=== PATIENT | female | born 2005 | race Caucasian/White ===

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

== ENCOUNTER → 2025-01-18 15:23 | Outpatient (BNVA) | payer SELFPAY | PROVIDERS: PCP Family Medicine | DX: J02.8 Acute pharyngitis due to other specified organisms (principal); B97.89 Other viral agents as the cause of diseases classified elsewhere | CPT/HCPCS: 81025; 87071; 87880 ==

== ENCOUNTER 2025-02-09 22:46 | Emergency (ER) | payer SELFPAY ==
--- OUTSIDE RECORDS SUMMARY | 2023-11-24 10:00 | XMS_ITS | Continuity of Care Document ---
Author Organization [facility] Address [address] [place] [address] Phone Care Team Providers Care Pump Assembler Name Role Phone No Information Unavailable Unavailable Advance Directives Directive Yes / No Effective Date File Name No Information Encounters Encounter Description Practice Location Reason(s) For Visit Diagnoses Date Provider Providers Copied on Encounter [facility], [address], [place], [place], [id number], [place] tel:[phone] [facility] No Information Sep-0 No Information Family History Family Member Type Diagnosis Age At Onset No Information Payers Payer name Insurance type Covered democrat ID Authoriza tion(s) No Information Social History Type Description Quantity Date Captured Comments Sex Female Smoking Status No Information Chief Complaint And Reason For Visit No Information Reason For Referral Reason For Referral No Information History Of Present Illness Encounter Date Complaint History Of Prese nt Illness No Information Functional Status Date Functional Assessmen t No Information Instructions Date Instruction Additional Infor mation No Information Assessments Type Assessment Date No Information Patient Care Teams Name Effective Dates (start - stop) Status Members No Information
[2025-02-09 22:47] VITALS: BP 117/77; PULSE 91; RESP 16; TEMP 36.8; O2SAT 99; BMI 21.7
--- OUTSIDE RECORDS SUMMARY | 2025-02-09 22:54 | XMS_ITS | Patient Health Record ---
Author Organization [facility] Address [address] [place] [address] Care Team Providers Care Senior Quality Methods Specialist Name Role Phone Charan Soliz MD Primary Care Provider Dolores Verma Unavailable [phone] Allergies Allergen (clinical drug ingredient) Drug/Non Drug Allergy documented on EMR Reaction Allergy Type Onset Date Status Penicillin Unknown Drug Allergy Active Reason For Referral No Information Medications Medication SIG (Take, Route, Frequency, Duration) Notes Start Date End Date Status NovoLOG FlexPen 100 UNIT/ML Solution Pen-injector 5 units Subcutaneous TID before meals Active Sertraline HCl Activ e Cetirizine HCl Activ e Ondansetron Active Lantus 100 UNIT/ML Solution 15 units Subcutaneous once per day in evening Active Social History Tobacco Use: Social History Observation Description Date Details (start date - stop date) Never Smoker NA - NA Social History Tobacco Use: Social Info Question Answer Notes xTobacco Use/Smoking Are you a nonsmoker Problems Problem Type SNOMED Code ICD Code Onset Dates Problem Status W/U Status Risk Notes Problem Hypoglycemia due to type 1 diabetes mellitus (disorder) (46042546445529) Type 1 diabetes mellitus with hypoglycemia and without coma (E10.649) Active confirmed Problem Long-term current use of insulin (791263210) Current use of insulin (Z79.4) Active confirmed Problem Hyperglycemia due to diabetes mellitus (930197996) Hyperglycemia due to diabetes mellitus (E11.65) Active confirmed Plan Of Treatment Pending Test Test Name Order Date C-Peptide 14287 01/15/2023 Hemoglobin A1c 02052 01/15/2023 Glucose Fasting--33492 01/15/2023 Insurance Providers Payer Name Payer Address Payer Phone Subscriber Number Group Number Insured Name Patient Relationship to Insured Coverage Start Date Coverage End Date [place] [address] [place] [address] [id number] Sam Hernandez Self - patient is the insured Medical (General) History Medical History History ICD Code type I diabetes
--- OUTSIDE RECORDS SUMMARY | 2025-02-09 22:54 | XMS_ITS | Data Portability ---
Author Organization [facility], Telemedicine Address [address] [address] Care Team Providers Care Coping Machine Assembler Name Role Phone [facility] Primary Car e Provider Assessment No assessment recorded. Plan of Treatment Reminders Order Date Submit Date Provider Last Modified By Organization Details Last Modified Time Details Appointments None recorded. Lab HbA1c (hemoglobin A1c), blood 2022 023 TARA Not available 3 07:39:15 CMP, serum or plasma 2022 023 TARA Not available 3 07:39:14 lipid panel, serum 2022 023 TARA Not available 3 07:39:14 CBC w/ auto diff 2022 023 TARA Not available 3 07:39:16 urinalysis, complete 2022 023 TARA Not available 3 07:39:16 albumin/cre atinine, ratio, urine 2022 023 Not available 3 11:12:16 venipunctur e 2022 023 [email or web address] Not available 3 11:12:16 Referral diabetic nutrition education referral 2022 023 [facility], [address], [place], [address], 3 17:50:10 Procedures None recorded. Surgeries None recorded. Imaging None recorded. Medication Orders cetirizine 10 mg tablet 2022 023 [facility], [address] [place], [address], 3 14:37:21 ondansetron HCl 8 mg tablet [address] [facility] [place], [address], 3 15:07:04 valacyclovi r 1 gram tablet 2022 023 [facility], [address] [place], [address], 3 10:22:20 Novolog FlexPen U-100 Insulin aspart 100 unit/mL (3 mL) subcutaneou s 2022 023 [facility], [address] [place], [address], 3 18:07:43 Lantus Solostar U-100 Insulin 100 unit/mL (3 mL) subcutaneou s pen 2022 023 [facility], [address] [place], [address], 3 10:44:29 Patient TargetsNo targets recorded. Patient Instructions Encounter Date Encounter Id Patient Instructions Last Modified By Organization Details Last Modified Time 01/01/2023 [id number] cold sores in teens: care instructions [email or web address] Not available 01/01/2023 17:01:48 Reason for Referral Diabetic Nutrition Education Referral for Uncontrolled type 1 diabetes mellitus Referring Physician: Charan Soliz, Family Medicine, Encounter Date: 01/01/2023 Results Created Date Observation Date Name Description Value Unit Range Abnormal Flag Note LastModifiedBy Organization Detail LastModifiedTime 11/05/19 23 11/05/2022 COMP METAB OLIC PANEL sodium 134 mEq/L 135-14 6 low Not Available [facility] [address] [facility], [place], [address], 11/05/2022 07:39:14 11/05/1911/05/2022 COMP METAB OLIC PANEL potassium 5.1 mEq/L 3.5-5. 4 Not Available [facility] [address] [place], [address], 11/05/2022 07:39:14 11/05/1911/05/2022 COMP METAB OLIC PANEL chloride 102 mEq/L 95-107 Not Available [facility] [address] [place], [address], 11/05/2022 07:39:14 11/05/19 23 11/05/2022 COMP METAB OLIC PANEL carbon dioxide 16 mEq/L 19-31 low Not Available [facility] [address] [place], [address], 11/05/2022 07:39:14 11/05/19 23 11/05/2022 COMP METAB OLIC PANEL anion gap 16 mEq/L 7-23 Not Available [facility] [address], [place], [address], 11/05/2022 07:39:14 11/05/19 23 11/05/2022 COMP METAB OLIC PANEL glucose fasting 426 mg/dL 70-99 high Not Available [facility] [address] [place], [address], 11/05/2022 07:39:14 11/05/19 23 11/05/2022 COMP METAB OLIC PANEL urea nitrogen (BUN) 14 mg/dL 6-20 Not Available [facility] [address] [place], [address], 11/05/2022 07:39:14 11/05/19 23 11/05/2022 COMP METAB OLIC PANEL creatinine 0.68 mg/dL 0.50-1 .10 Not Available [facility] [address] [place], [address], 11/05/2022 07:39:14 11/05/19 23 11/05/2022 COMP METAB OLIC PANEL 2020 CKD-epi eGFR-cr SEE NOTE mL/mi n/1.7 3m'2 Not Available [facility] [address], [place], [address], 11/05/2022 07:39:14 11/05/19 23 11/05/2022 COMP METAB OLIC PANEL BUN/creatini ne ratio 21 ratio Not Available [facility] [address], [place], [address], 11/05/2022 07:39:14 11/05/19 23 11/05/2022 COMP METAB OLIC PANEL calcium total 9.8 mg/dL 8.5-10 .5 Not Available [facility] [address], [place], [address], 11/05/2022 07:39:14 11/05/19 23 11/05/2022 COMP METAB OLIC PANEL protein total 7.3 g/dL 6.1-8. 3 Not Available [facility] [address], [place], [address], 11/05/2022 07:39:14 11/05/19 23 11/05/2022 COMP METAB OLIC PANEL albumin 4.7 g/dL 3.5-5. 2 Not Available [facility] [address], [place], [address], 11/05/2022 07:39:14 11/05/19 23 11/05/2022 COMP METAB OLIC PANEL globulin 2.6 g/dL 1.7-4. 3 Not Available [facility] [address] [place], [address], 11/05/2022 07:39:14 11/05/19 23 11/05/2022 COMP METAB OLIC PANEL A/G ratio 1.8 ratio 0.9-2. 8 Not Available [facility] [address] [place], [address], 11/05/2022 07:39:14 11/05/19 23 11/05/2022 COMP METAB OLIC PANEL bilirubin total 0.6 mg/dL 0.0-1. 2 Not Available [facility] [address] [place], [address], 11/05/2022 07:39:14 11/05/19 23 11/05/2022 COMP METAB OLIC PANEL alkaline phosphatase 99 U/L 41-120 Not Available [facility] [address] [facility] [place], [address], 11/05/2022 07:39:14 11/05/19 23 11/05/2022 COMP METAB OLIC PANEL AST (SGOT) 12 U/L 9-40 Not Available [facility] [address] [place], [address], 11/05/2022 07:39:14 11/05/19 23 11/05/2022 COMP METAB OLIC PANEL ALT (SGPT) 11 U/L 5-40 Comme nt for COMP METAB OLIC PANEL Note: 2020 CKD-E PI is not valid ated for pedia tric popul ation s. For patie nts less than 19 years old, consi terrance the NKF pedia tric eGFR calcu lator . Not Available [facility] [address] [place], [address], 11/05/2022 07:39:14 11/05/19 23 11/05/2022 LIPID PROFI LE cholesterol 185 mg/dL <200 Not Available [facility] [address] [facility] [place], [address], 11/05/2022 07:39:14 11/05/19 23 11/05/2022 LIPID PROFI LE triglyceride s 134 mg/dL 0-149 Not Available [facility] [address] [facility] [place], [address], 11/05/2022 07:39:14 11/05/19 23 11/05/2022 LIPID PROFI LE HDL cholesterol 59 mg/dL >39 Not Available [facility] [address] [facility] [place], [address], 11/05/2022 07:39:14 11/05/19 23 11/05/2022 LIPID PROFI LE LDL cholesterol 103 mg/dL <100 high Not Available [facility] [address] [facility] [place], [address], 11/05/2022 07:39:14 11/05/19 23 11/05/2022 LIPID PROFI LE non HDL cholesterol 126 mg/dL <130 Not Available [facility] [address] [facility] [place], [address], 11/05/2022 07:39:14 11/05/19 23 11/05/2022 LIPID PROFI LE coronary risk ratio 3.14 <4.44 Comme nt for LIPID PROFI LE Non-H DL Allyson stero l is a eden r indic ator for cardi ovasc ular risk than LDL-C holes terol for patie nts who have incre ased trigl yceri zo or are non-f astin g. Non-H DL Allyson stero l: < 130 mg/dL (Opti mal) < 160 mg/dL (Near Optim al/Ab ove Optim al) LDL Al[place] stero l: < 100 mg/dL (Opti mal) < 130 mg/dL (Near Optim al/Ab ove Optim al) Coron abby Risk Ratio : [place] ge for femal es < 4.44 Not Available [facility] [address] [facility] [place], [address], 11/05/2022 07:39:14 11/05/19 23 11/05/2022 HEMOG LOBIN A1C hemoglobin A1C 6.8 % 4.2-5. 6 high Not Available [facility] [address] [facility] [place], [address], 11/05/2022 07:39:15 11/05/19 23 11/05/2022 HEMOG LOBIN A1C mean glucose est 148 mg/dL Comme nt for HEMOG LOBIN A1C [facility]i can [facility] i[facility] n Guide lines for Hgb A1c: Predi abete s/Inc rease d risk: 5.7 - 6.4 % Diagn osis of diabe cristobal: >= 6.5 % (with confi rmati on or appro priat e sympt oms) Assay may be affec patrizia by hemog lobin opath ies (sick le cell anemi a, SC disea se, other s) or artif icial ly lower ed by decre ased red cell survi jennifer (hemo lytic anemi as, blood loss, etc.) . Consi terrance alter elroy testi ng or labor atory consu ltati on. Not Available [facility] [address] [facility] [place], [address], 11/05/2022 07:39:15 11/05/19 23 11/05/2022 ALBUM IN/CR EAT RATIO albumin urine 1.1 mg/dL Not Available [facility] [address] [facility] [place], [address], 11/05/2022 07:39:15 11/05/19 23 11/05/2022 ALBUM IN/CR EAT RATIO creatinine-r andom urine 60 mg/dL 28-217 Not Available [facility] [address] [facility] [place], [address], 11/05/2022 07:39:15 11/05/19 23 11/05/2022 ALBUM IN/CR EAT RATIO albumin/crea t ratio 18 mg/g_ crea <30 Not Available [facility] [address], [place], [address], 11/05/2022 07:39:15 11/05/19 23 11/05/2022 CBC WITH DIFFE RENTI AL WBC 7.4 K/uL 4.0-11 .0 Not Available [facility] [address], [place], [address], 11/05/2022 07:39:16 11/05/19 23 11/05/2022 CBC WITH DIFFE RENTI AL RBC 4.47 M/uL 4.00-5 .50 Not Available [facility] [address], [place], [address], 11/05/2022 07:39:16 11/05/19 23 11/05/2022 CBC WITH DIFFE RENTI AL hemoglobin 13.4 g/dL 12.0-1 6.0 Not Available [facility] [address] [place], [place], [address], 11/05/2022 07:39:16 11/05/19 23 11/05/2022 CBC WITH DIFFE RENTI AL hematocrit 40.5 % 36.0-4 8.0 Not Available [facility] [address] [place], [address], 11/05/2022 07:39:16 11/05/19 23 11/05/2022 CBC WITH DIFFE RENTI AL MCV 90.6 fL 78.0-1 02.0 Not Available [facility] [address] [place], [address], 11/05/2022 07:39:16 11/05/19 23 11/05/2022 CBC WITH DIFFE RENTI AL MCH 30.0 pg 25.0-3 5.0 Not Available [facility] [address] [place], [place], [address], 11/05/2022 07:39:16 11/05/19 23 11/05/2022 CBC WITH DIFFE RENTI AL MCHC 33.1 g/dL 30.0-3 6.0 Not Available [facility] [address] [place], [address], 11/05/2022 07:39:16 11/05/19 23 11/05/2022 CBC WITH DIFFE RENTI AL RDW 11.3 % 11.5-1 6.0 low Not Available [facility] [address] [place], [place], [address], 11/05/2022 07:39:16 11/05/19 23 11/05/2022 CBC WITH DIFFE RENTI AL platelet count 394 K/uL 150-45 0 Not Available [facility] [address] [place], [address], 11/05/2022 07:39:16 11/05/19 23 11/05/2022 CBC WITH DIFFE RENTI AL abs neutrophils 5.0 K/uL 1.8-7. 0 Not Available [facility] [address] [place], [address], 11/05/2022 07:39:16 11/05/19 23 11/05/2022 CBC WITH DIFFE RENTI AL abs lymphocytes 1.6 K/uL 1.0-4. 0 Not Available [facility] [address] [place], [address], 11/05/2022 07:39:16 11/05/19 23 11/05/2022 CBC WITH DIFFE RENTI AL abs monocytes 0.5 K/uL 0.1-1. 1 Not Available [facility] [address] [place], [address], 11/05/2022 07:39:16 11/05/19 23 11/05/2022 CBC WITH DIFFE RENTI AL abs eosinophils 0.2 K/uL 0.0-0. 5 Not Available [facility] [address], [place], [address], 11/05/2022 07:39:16 11/05/19 23 11/05/2022 CBC WITH DIFFE RENTI AL abs basophils 0.1 K/uL 0.0-0. 3 Not Available [facility] [address], [place], [address], 11/05/2022 07:39:16 11/05/19 23 11/05/2022 CBC WITH DIFFE RENTI AL abs immature grans 0.0 K/uL 0.0-0. 1 Not Available [facility] [address] [place], [place], [address], 11/05/2022 07:39:16 11/05/19 23 11/05/2022 CBC WITH DIFFE RENTI AL neutrophils 67.8 % Not Available [facility] [address] [place], [place], [address], 11/05/2022 07:39:16 11/05/19 23 11/05/2022 CBC WITH DIFFE RENTI AL lymphocytes 21.4 % Not Available [facility] [address] [place], [place], [address], 11/05/2022 07:39:16 11/05/19 23 11/05/2022 CBC WITH DIFFE RENTI AL monocytes 6.2 % Not Available [facility] [address], [place], [address], 11/05/2022 07:39:16 11/05/19 23 11/05/2022 CBC WITH DIFFE RENTI AL eosinophils 2.8 % Not Available [facility] [address] [place], [address], 11/05/2022 07:39:16 11/05/19 23 11/05/2022 CBC WITH DIFFE RENTI AL basophils 1.5 % Not Available [facility] [address], [place], [address], 11/05/2022 07:39:16 11/05/19 23 11/05/2022 CBC WITH DIFFE RENTI AL immature grans 0.3 % Not Available [facility] [address], [place], [address], 11/05/2022 07:39:16 11/05/19 23 11/05/2022 CBC WITH DIFFE RENTI AL nucleated RBCs <1.0 /100_ WBCs <1 Not Available [facility] [address], [place], [address], 11/05/2022 07:39:16 11/05/19 23 11/05/2022 URINA LYSIS W/SAMI RO color YELLOW yellow Not Available [facility] [address] [place], [address], 11/05/2022 07:39:16 11/05/19 23 11/05/2022 URINA LYSIS W/SAMI RO clarity CLEAR clear Not Available [facility] [address] [place], [address], 11/05/2022 07:39:16 11/05/19 23 11/05/2022 URINA LYSIS W/SAMI RO glucose 3+ negati ve abnormal Not Available [facility] [address] [place], [address], 11/05/2022 07:39:16 11/05/19 23 11/05/2022 URINA LYSIS W/SAMI RO bilirubin NEGATI VE negati ve Not Available [facility] [address], [place], [address], 11/05/2022 07:39:16 11/05/19 23 11/05/2022 URINA LYSIS W/SAMI RO ketones 4+ negati ve abnormal Not Available [facility] [address] [place], [address], 11/05/2022 07:39:16 11/05/19 23 11/05/2022 URINA LYSIS W/SAMI RO specific gravity 1.032 1.005- 1.030 high Not Available [facility] [address] [place], [address], 11/05/2022 07:39:16 11/05/19 23 11/05/2022 URINA LYSIS W/SAMI RO blood NEGATI VE negati ve Not Available [facility] [address] [place], [address], 11/05/2022 07:39:16 11/05/19 23 11/05/2022 URINA LYSIS W/SAMI RO pH 5.5 4.6-8. 5 Not Available [facility] [address] [place], [address], 11/05/2022 07:39:16 11/05/19 23 11/05/2022 URINA LYSIS W/SAMI RO protein NEGATI VE negati ve Not Available [facility] [address] [place], [address], 11/05/2022 07:39:16 11/05/19 23 11/05/2022 URINA LYSIS W/SAMI RO nitrite NEGATI VE negati ve Not Available [facility] [address] [place], [address], 11/05/2022 07:39:16 11/05/19 23 11/05/2022 URINA LYSIS W/SAMI RO leukocyte esterase NEGATI VE negati ve Not Available [facility] [address], [place], [address], 11/05/2022 07:39:16 11/05/19 23 11/05/2022 URINA LYSIS W/SAMI RO white blood cells 12 /hpf <2 high Not Available [facility] [address] [place], [address], 11/05/2022 07:39:16 11/05/19 23 11/05/2022 URINA LYSIS W/SAMI RO red blood cells <2 /hpf 0-4 Not Available [facility] [address] [place], [address], 11/05/2022 07:39:16 11/05/19 23 11/05/2022 URINA LYSIS W/SAMI RO bacteria 3+ negati ve abnormal Not Available [facility] [address] [place], [address], 11/05/2022 07:39:16 11/05/19 23 11/05/2022 URINA LYSIS W/SAMI RO epith-squamo us 12 Not Available [facility] [address] [place], [address], 11/05/2022 07:39:16 11/05/19 23 11/05/2022 URINA LYSIS W/SAMI RO casts-hyalin e 0 Not Available [facility] [address] [place], [address], 11/05/2022 07:39:16 Result Notes None recorded. Problems Name Problem SNOMED Code Status Onset Date Resolution Date Notes Provider Name and Address Organization Details Recorded Time Uncontro lled type 1 diabetes mellitus 947826589 Active Charan Soliz MD [address] [place], [address], [place] - Charan Davisibner 6 22:31:32 Upper respirat ory infectio n 47902669 Completed 03/19/2016 Removal Reason: Resolved BEN Tobar 6 10:30:24 Asthma 658944428 Active Charan Soliz MD [address] [place], [address], [place] - Charan Davisibner 6 11:07:44 Otitis media 20517420 Completed 03/19/2016 Removal Reason: Resolved Melba Stapleton candaceBEN 6 10:30:14 Allergic rhinitis 90822078 Completed 03/19/2017 BEN Tobar 7 15:02:08 Problem Notes None recorded. Medical Equipment None Reported. Allergies Allergen ID Allergen Name Allergen Category Reaction Reaction Severity Criticality Documentation Date Start Date Code Code System Note Provider Name and Address Organization Details Recorded Time 11245 Bactrim medicatio n rash moderate Not available 04/18/2017 07595 9 RxNorm [place], [address], [place] - Charan Soliz 8 10:39:36 79072 valacyclo vir medicatio n Not available Not available low 01/02/2023 15948 RxNorm Stevo mariaBEN 3 10:22:01 5681 Product containin g penicilli n (product) medicatio n Not available Not available Not available 04/27/2014 43975 8001 SNOMED Carol Castaneda BEN maria 5 09:06:15 Medications Name Sig Start Date Stop Date Status Note LastModified by Organization Details LastModified Time monteluka st 5 mg chewable tablet Chew 1 tablet every day by oral route. 09/04 completed Not Available Not Available Not Available fluconazo le 100 mg tablet TAKE ONE TABLET BY MOUTH EVERY DAY FOR THREE DAYS 12/11 completed Not Available Not Available Not Available neomycin- polymyxin -hydrocor t 3.5 mg/mL-10, 000 unit/mL-1 % ear solution 03/06 completed Not Available Not Available Not Available doxycycli ne hyclate 100 mg capsule TAKE 1 CAPSULE BY MOUTH TWICE DAILY FOR 7 DAYS 10/03 completed Not Available Not Available Not Available albuterol sulfate 2.5 mg/3 mL (0.083 %) solution for nebulizat ion USE 1 VIAL IN NEBULIZE R 4 TIMES A DAY NEEDED DIRECTED 01/04 completed Not Available Not Available Not Available azithromy cassy 250 mg tablet Take 1 dose pk every day by oral route. 02/06 completed Not Available Not Available Not Available Glucagon Emergency Kit 1 mg solution for injection INJECT 1 MG SUBCUTAN EOUSLY EVERY 20 MINUTES NEEDED FOR HYPOGLYC EMIA; UNTIL TARGET BLOOD SUGAR ATTAINED active Not Available Not Available No t Available fluconazo le 150 mg tablet TAKE ONE TABLET BY MOUTH one time ONLY 09/04 completed Not Available Not Available Not Available valacyclo vir 1 gram tablet Take 2 tablets every 12 hours by oral route for 1 day. 01/02 completed Not Available Not Available Not Available clarithro mycin 500 mg tablet Take 1 tablet twice a day by oral route for 7 days. 11/04 completed Not Available Not Available Not Available ondansetr on HCl 8 mg tablet Take 1 tablet 3 times a day by oral route. active Not Available Not Available No t Available sertralin e 100 mg tablet TAKE ONE TABLET BY MOUTH EVERY DAY 10/03 completed Not Available Not Available Not Available Lantus U-100 Insulin 100 unit/mL subcutane ous solution INJECT 21 UNITS SUBCUTAN EOUSLY IN THE EVENING 10/03 completed Not Available Not Available Not Available Zyrtec 10 mg tablet Take 1 tablet every day by oral route for 30 days. 2022 active Not Available Not Available Not Avai lable sulfameth oxazole 800 mg-trimet hoprim 160 mg tablet Take 1 tablet twice a day by oral route for 7 days. 04/18 completed Not Available Not Available Not Available triamcino lone acetonide 0.1 % topical cream APPLY topicall y TO THE affected AREAS TWICE DAILY 10/03 completed Not Available Not Available Not Available ondansetr on 8 mg disintegr ating tablet Place 1 tablet 3 times a day by translin gual route as needed. 03/15 completed Not Available Not Available Not Available ofloxacin 0.3 % ear drops Instill 2 drops every day by otic route for 7 days. 01/16 completed Not Available Not Available Not Available gentamici n 0.3 % eye drops 01/25 completed Not Available Not Available Not Available benzonata te 100 mg capsule Take 1 capsule 3 times a day by oral route as needed. 04/16 completed Not Available Not Available Not Available cephalexi n 500 mg capsule Take 1 capsule 3 times a day by oral route as directed for 7 days. 08/26 completed Not Available Not Available Not Available Promethaz ine VC 6.25 mg-5 mg/5 mL oral syrup active Not Available Not Available Not Available norgestim ate-ethin yl estradiol 0.18mg/0. 215mg/0.2 5mg-0.035 mg(28)tab let TAKE ONE TABLET BY MOUTH EVERY DAY 05/23 completed Not Available Not Available Not Available azithromy cassy 200 mg/5 mL oral suspensio n Take 5 mL every day by oral route. active Not Available Not Available No t Available ondansetr on 4 mg disintegr ating tablet DISSOLVE ONE TABLET in MOUTH THREE TIMES DAILY NEEDED FOR NAUSEA AND VOMITING 10/03 completed Not Available Not Available Not Available cefdinir 300 mg capsule TAKE ONE CAPSULE BY MOUTH TWICE DAILY 08/26 completed Not Available Not Available Not Available clotrimaz ole 1 % topical cream Apply 1 applicat ion twice a day by topical route. 05/03 completed Not Available Not Available Not Available sertralin e 50 mg tablet TAKE 1 TABLET BY MOUTH TWICE DAILY active Not Available Not Available No t Available medroxypr ogesteron e 150 mg/mL intramusc ular suspensio n one injectio n every three months 2022 active Not Available Not Available Not Avai lable doxycycli ne hyclate 100 mg tablet Take 1 tablet twice a day by oral route for 7 days. 11/21 completed Not Available Not Available Not Available Ventolin HFA 90 mcg/actua tion aerosol inhaler INHALE 2 PUFFS BY MOUTH EVERY 4 HOURS NEEDED active Not Available Not Available No t Available Mucinex 600 mg tablet, extended release Take 1 tablet twice a day by oral route as needed. active Not Available Not Available No t Available medroxypr ogesteron e 150 mg/mL intramusc ular syringe INJECT INTRAMUS CULARLY EVERY THREE MONTHS active Not Available Not Available No t Available Sprintec (28) 0.25 mg-0.035 mg tablet TAKE 1 TABLET BY MOUTH ONCE DAILY 10/03 completed Not Available Not Available Not Available Novolog FlexPen U-100 Insulin aspart 100 unit/mL (3 mL) subcutane ous USE DIRECTED PER SLIDING SCALE 2022 active Not Available Not Available Not Avai lable cetirizin e 5 mg chewable tablet Chew 1 tablet every day by oral route. 2015 active had to get the liquid because [facility] will not pay for the chewable tabs Not Available Not Available Not Available Flovent HFA 110 mcg/actua tion aerosol inhaler 07/24 completed Not Available Not Available Not Available Unifine Pentips 31 gauge x 5/16 needle USE TO TAKE INSULIN UP TO 5 TIMES A DAY NEEDED 10/03 completed Not Available Not Available Not Available Mucinex D Maximum Strength 120 mg-1,200 mg tablet,ex tended release Take 1 tablet twice a day by oral route as needed. 03/06 completed Not Available Not Available Not Available Lantus Solostar U-100 Insulin 100 unit/mL (3 mL) subcutane ous pen inject 15 units SUBCUTAN EOUSLY EVERY night 91 DAY supply active Not Available Not Available No t Available cetirizin e 1 mg/mL oral solution 07/24 completed Not Available Not Available Not Available TRUEplus Lancets 30 gauge USE TO test blood sugar FOUR TIMES DAILY 10/03 completed Not Available Not Available Not Available True Metrix Glucose Test Strip USE TO test blood sugar FOUR TIMES DAILY 10/03 completed Not Available Not Available Not Available True Metrix Glucose Meter USE TO test blood sugar FOUR TIMES DAILY 10/03 completed Not Available Not Available Not Available BD Elena 2nd Gen Pen Needle 32 gauge x 5/32 USE DIRECTED active Not Available Not Available No t Available Vitals Date Recorded Body weight Heart rate Oxygen saturation Oxygen saturation in Arterial blood by Pulse oximetry Body temperature Systolic And Diastolic Provider Name and Address Organization Details Last Updated DateTime 3 94960.9 g 108 /min 97 % 97 % 98 [degF] 116/68 mm[Hg] [facility] Mart[facility]nez 3 10:11:36 Date Recorded Body weight Heart rate Oxygen saturation Oxygen saturation in Arterial blood by Pulse oximetry Body temperature Systolic And Diastolic Provider Name and Address Organization Details Last Updated DateTime 3 84003.9 g 102 /min 98 % 98 % 98 [degF] 109/71 mm[Hg] [facility] 3 16:49:34 Date Recorded Body weight Body temperature Heart rate Oxygen saturation Oxygen saturation in Arterial blood by Pulse oximetry Systolic And Diastolic Provider Name and Address Organization Details Last Updated DateTime 3 84909.4 6 g 99.3 [degF] 56 /min 97 % 97 % 119/68 mm[Hg] [facility] [place] 3 16:17:18 Date Recorded Body weight Body temperature Heart rate Oxygen saturation Oxygen saturation in Arterial blood by Pulse oximetry Body mass index (BMI) [Percentile] Per age and sex Body mass index (BMI) Body height Systolic And Diastolic Provider Name and Address Organization Details Last Updated DateTime 3 74358.8 6 g 98.4 [degF] 90 /min 99 % 99 % 61 % 22.5 kg/m2 157.48 cm 104/65 mm[Hg] Tracey arshad [facility] [place] 3 14:26:26 Date Recorded Body height Body mass index (BMI) Body mass index (BMI) [Percentile] Per age and sex Body weight Body temperature Oxygen saturation Oxygen saturation in Arterial blood by Pulse oximetry Heart rate Systolic And Diastolic Provider Name and Address Organization Details Last Updated DateTime 3 157.48 cm 21.6 kg/m2 51 % 71111.9 8 g 98.5 [degF] 99 % 99 % 91 /min 116/67 mm[Hg] Stevo Davisibner 3 16:03:00 Social History Question Answer Notes LastModified by Organizat ion Details LastModified Time Tobacco Smoking Status Never Smoker Not Available [employer] 01/25/2020 03:38:54 What Is Your Level Of Caffeine Consumption? Occasional [id number] Information not available 01/25/2020 How Much Tobacco Do You Chew? None [id number] Information not available 01/25/2020 What Type Of Diet Are You Following? REGULAR [id number] Information not available 01/25/2020 What Is The Fluoride Status Of Your Home? Unknown [id number] Information not available 01/25/2020 Are There Any Guns Present In Your Home? Yes [id number] Information not available 01/25/2020 What Is Your Home Situation? Father [id number] Information not available 01/25/2020 Mosquito Repellent Used Routinely Yes Information not available 04/27/2014 What Was The Date Of Your Most Recent Tobacco Screening? 01/07/2023 [email or web address] Information not available 01/07/2023 What Is Your Parents' Marital Status? [id number] Information not available 01/25/2020 What Is The Name Of Your School? [employer] [id number] Information not available 01/25/2020 Do You Use Your Seat Belt Or Car Seat Routinely? Yes [id number] Information not available 01/25/2020 Are You Sexually Active? No [id number] Information not available 01/25/2020 Do You Have Any Siblings? 1 Brother [id number] Information not available 01/25/2020 Do You Have Smoke And Carbon Monoxide Detectors In Your Home? Yes [id number] Information not available 01/25/2020 Are You Passively Exposed To Smoke? Yes Information not available 04/27/2014 How Much Tobacco Do You Smoke? No [id number] Information not available 01/25/2020 What Types Of Sporting Activities Do You Participate In? None [id number] Information not available 01/25/2020 Do You Use Sunscreen Routinely? Yes [id number] Information not available 01/25/2020 Year In School 8 Informat[employer] n not available 01/01/2019 Sex: Unknown Functional Status Question Answer Note LastModified by Organization D etails LastModified Time What is your level of alcohol consumption? None [id number] Information not available 01/25/2020 Mental Status None recorded. Family History Relationship Description Onset Age of this Age Resolved Age Notes LastModified by Organization Details LastModified Time Father Asthma [email or web address] Not available 0 06/27/2014 17:36:31 Medical History Condition Response Diabetes Y Asthma Y Gynecological HistoryNo gynecological history recorded. Obstetrics History GPAL:G 0 P 0 0 0 0 Immunizations Vaccine Type Date Status Note Provider Nam e and Address Organization Details Recorded Time influenza, unspecified formulation 7 completed Not Available [facility] 08/22/2022 21:23:06 influenza, unspecified formulation 8 completed Not Available [facility] 08/22/2022 21:23:06 Influenza, split virus, quadrivalent, preservative 9 completed Not Available [facility] 08/22/2022 21:23:06 influenza, unspecified formulation 5 completed Not Available [facility] 08/22/2022 21:23:06 DTaP, unspecified formulation 4 completed Not Available [facility] 08/22/2022 21:23:07 DTaP, unspecified formulation 6 completed Not Available [facility] 08/22/2022 21:23:07 DTaP, unspecified formulation 8 completed Not Available [facility] 08/22/2022 21:23:07 Tdap 6 completed Not Available [facility] 08/22/2022 21:23:06 DTaP,IPV,Hib,HepB 5 completed Not Available [facility] 08/22/2022 21:23:07 DTaP,IPV,Hib,HepB 5 completed Not Available [facility] 08/22/2022 21:23:07 polio, unspecified formulation 4 completed Not Available [facility] 08/22/2022 21:23:07 polio, unspecified formulation 8 completed Not Available [facility] 08/22/2022 21:23:07 Hib, unspecified formulation 4 completed Not Available [facility] 08/22/2022 21:23:06 Hib, unspecified formulation 5 completed Not Available [facility] 08/22/2022 21:23:06 pneumococcal conjugate PCV 7 4 completed Not Available [facility] 08/22/2022 21:23:06 pneumococcal conjugate PCV 7 5 completed Not Available [facility] 08/22/2022 21:23:06 pneumococcal conjugate PCV 7 5 completed Not Available [facility] 08/22/2022 21:23:06 pneumococcal conjugate PCV 7 5 completed Not Available [facility] 08/22/2022 21:23:06 Hep B, adolescent or pediatric 4 completed Not Available [facility] 08/22/2022 21:23:07 Hep B, adolescent or pediatric 4 completed Not Available [facility] 08/22/2022 21:23:07 MMR 5 completed Not Available [facility] 08/22/2022 21:23:06 MMR 8 completed Not Available [facility] 08/22/2022 21:23:06 varicella 5 completed Not Available [facility] 08/22/2022 21:23:06 varicella 8 completed Not Available [facility] 08/22/2022 21:23:06 meningococcal MCV4, unspecified formulation 6 completed Not Available [facility] 08/22/2022 21:23:07 Past Encounters Encounter ID Performer Location Encounter Start Date Encounter Closed Date Diagnosis/Indication Diagnosis SNOMED-CT Code Diagnosis ICD10 Code Diagnosis IMO Codes Diagnosis Note [id number] Charan Soliz MD Main Office [address] [place] [address] 04/27/2014 08:44:11 04/27/2014 09:48:23 Uncontrolled type 1 diabetes mellitus 840161233 cbc,cmp,hg ba1c, ua Upper resp iratory infection 74285664 [id number] Charan Soliz MD Main Office [address] [place] [address] 06/27/2014 17:03:54 06/27/2014 18:11:47 Uncontrolled type 1 diabetes mellitus 570575791 increase lantus and cont to follow. Asthma 003009189 [id number] Charan Soliz MD Main Office [address] [place] [address] [place] [address] 1 08/08/2014 16:42:05 08/08/2014 18:26:27 Uncontrolled type 1 diabetes mellitus 712583988 numbers looking better. taking 8units lantus Asthma 646619315 [id number] Charan Soliz MD Main Office [address] [place] [address] [place] [address] 1 10/14/2014 09:14:29 10/14/2014 10:13:24 Well child 873612510 Uncontroll ed type 1 diabetes mellitus 196606672 cbc,cmp,hg ba1c,flp [id number] Charan Soliz MD Main Office [address] [place] [address] [place] [address] 1 01/16/2015 16:42:17 01/16/2015 17:34:44 Uncontrolled type 1 diabetes mellitus 648338975 E10.65 papers filled out for school and will cont to follow. Pt doing some better and starting to take control of her disease. still getting help with shots but checking bg on her own now. check labs next visit. cbc,cmp,hg ba1c [id number] Charan Soliz MD Main Office [address] [place] [address] [place] [address] 04/18/2015 08:50:02 04/18/2015 09:26:47 Uncontrolled type 1 diabetes mellitus 196700335 E10.65 cbc,cmp,hg ba1c,ua,fl p check fasting labs. glucose readings reviewed and doing well. Asthma 669051551 J45.90 9 cont meds. [id number] Charan Soliz MD Main Office [address] [place] [address] [place] [address] 1 07/17/2015 17:08:49 07/17/2015 17:46:42 Uncontrolled type 1 diabetes mellitus 231239409 E10.65 increase to lantus 10 units. will cont to follow Otitis media 70732460 H6 6.93 Allergic rhinitis 370986 04 J30.9 [id number] Charan Soliz MD Main Office [address] [place] [address] [place] [address] 08/14/2015 16:55:15 08/14/2015 18:03:46 Uncontrolled type 1 diabetes mellitus 459725668 E10.65 cont meds. adjustment working well. check labs [id number] Charan Soliz MD Main Office [facility] [place] [address] 10/24/2015 17:00:36 10/24/2015 18:03:52 Uncontrolled type 1 diabetes mellitus 735389798 E10.65 Otitis media 20394492 H6 6.93 [id number] Charan Soliz MD Main Office [facility] [place] [address] 1 01/26/2016 10:06:43 01/26/2016 10:48:36 Uncontrolled type 1 diabetes mellitus 642438280 E10.65 Uncontroll ed. Educated patient and father on better eating habits to control DM. She lives with her father so resources are limited. Continue testing blood sugar 4 times a day and using the lantus and novolog as directed. Will continue to monitor. Follow-up in 3 months. Well child 966013410 Z00 .129 Stable. Patient is exceling in school and meeting all developmen shahida milestones . Follow-up in 1 year. Tinea pedis 8195940 B35. 3 Exacerbate d. Start lotrimin AF as directed. Follow-up in 3 months. Asthma 448220348 J45.90 9 Controlled . Continue using albuterol and ventolin as directed. Follow-up in 3 months. Allergic rhinitis 918256 04 J30.9 Stable. Continue taking cetirizine are directed and follow-up in 3 months. [id number] Charan Soliz MD Main Office [facility] [place] [address] 1 05/03/2016 10:08:20 05/03/2016 11:04:47 Uncontrolled type 1 diabetes mellitus 131270729 E10.65 [id number] Charan Soliz MD Main Office [facility] [place] [address] 1 08/09/2016 11:02:43 08/09/2016 11:46:08 Uncontrolled type 1 diabetes mellitus 482124256 E10.65 [id number] Charan Soliz MD Main Office [address] [place] [address] [place] [address] 1 11/08/2016 08:50:48 11/08/2016 09:41:40 Uncontrolled type 1 diabetes mellitus 973890673 E10.65 Cellulitis 267841829 L03 .90 Asthma 763769556 J45.90 9 [id number] Charan Soliz MD Main Office [address] [place] [address] [place] [address] 1 02/07/2017 10:33:51 02/07/2017 11:36:17 Uncontrolled type 1 diabetes mellitus 071125536 E10.65 Unstable. Referred to DM education classes for dietary advice and to explore the possibilit ies of getting the CGM placed to give a better picture of BG results throughout the day. Continue using Lantus and Novolog as directed. Check BG before any meals, at bedtime and first thing in the morning until CGM is placed. Follow-up in 3 months with fasting lab. Asthma 159495072 J45.90 9 Controlled . Continue to use albuterol and pro-air as needed. Follow-up in 6 months. Well child 717820204 Z00 .129 Stable. Patient needs dental exam. Will have staff set-up referral. Follow-up in 1 year. [id number] Charan Soliz MD Main Office [address] [place] [address] 1 04/11/2017 11:26:10 04/11/2017 13:57:55 Folliculitis 12159064 L73.9 WIll give abx and instructed to stop using TAB oint. Pt denies any abuse or touching. Pt states she is only one putting medicine on her vagina. Type 1 selwyn betes mellitus 81249486 E10.69 novolog 5 units given after accucheck on 500. no ketones. after observatio n for 30 min pt feeling much better and accucheck near 400. Pt to recheck in one hour once home. [id number] Charan Soliz MD Main Office [address] [place] [address] 1 04/18/2017 09:59:09 04/18/2017 10:48:07 Uncontrolled type 1 diabetes mellitus 677229811 E10.65 Eczema 81065634 L30.9 [id number] Charan Soliz MD Main Office [address] [place] [address] 1 05/16/2017 08:46:52 05/16/2017 09:28:14 Uncontrolled type 1 diabetes mellitus 913161820 E10.65 Bronchitis 29974282 J40 [id number] Charan Soliz MD Main Office [address] [place] [address] 1 08/15/2017 09:07:33 08/15/2017 09:59:42 Uncontrolled type 1 diabetes mellitus 334351508 E10.65 Uncontroll ed. Patient's A1C is 9.8. Unfortunat hyacinth, her home status is poor. Father is trying to get moved to town to help improve situation. Encouraged patient and father to count her carbs and stay within recommende d limits. Continue using lantus solostar and novolog as prescribed . Continue to check blood sugar four times a day. Will continue to manage and educate on a regular basis. Follow-up in 3 months. Asthma 468347137 J45.90 9 Controlled . Patient still has proair and albuterol to use as needed. Taking montelukas t on a daily basis. Will continue to monitor. Follow-up in 3 months. [id number] Charan Soliz MD Main Office [address] [place] [address] 1 10/30/2017 08:54:16 10/30/2017 09:35:32 Type 1 diabetes mellitus 37095991 E10.69 Asthma 683221501 J45.90 9 Cellulitis 840104064 L03 .90 [id number] Charan Soliz MD Main Office [address] [place] [address] 1 11/03/2017 15:51:24 11/03/2017 16:38:15 Cellulitis 151620123 L03.90 Type 1 selwyn betes mellitus 32822688 E10.69 [id number] Charan Soliz MD Main Office [address] [place] [address] 1 11/21/2017 08:57:07 11/21/2017 09:51:25 Uncontrolled type 1 diabetes mellitus 908599424 E10.65 Contact de rmatitis caused by urushiol from [facility] fernandez 092694425 L25.5 Asthma 721232269 J45.90 9 [id number] Charan Soliz MD Main Office [address] [place] [address] 1 02/02/2018 10:31:11 02/02/2018 11:04:01 Bronchitis 90060998 J40 Type 1 selwyn betes mellitus 35971984 E10.69 [id number] Charan Soliz MD Main Office [address] [place] [address] 1 03/06/2018 09:48:22 03/06/2018 10:40:06 Uncontrolled type 1 diabetes mellitus 641754208 E10.65 Ankle pain 001007578 M25 .579 Asthma 416667735 J45.90 9 [id number] Charan Soliz MD Main Office [facility] [place] [id number] 1 06/05/2018 09:11:04 06/05/2018 15:25:16 Uncontrolled type 1 diabetes mellitus 031326682 E10.65 [id number] Charan Soliz MD Main Office [facility] [place] [address] 1 09/25/2018 09:23:51 09/25/2018 09:46:55 Uncontrolled type 1 diabetes mellitus 847153880 E10.65 Asthma 647093305 J45.90 9 [id number] Charan Soliz MD Main Office [facility] [place] [address] 1 10/30/2018 10:18:26 10/30/2018 16:44:52 Uncontrolled type 1 diabetes mellitus 672402521 E10.65 Pharyngitis 381723754 J0 2.9 Strep - + Well child 698856127 Z00 .129 [id number] Charan Soliz MD Main Office [facility] [place] [address] 1 01/01/2019 09:14:16 01/01/2019 09:45:53 Uncontrolled type 1 diabetes mellitus 904236621 E10.65 pt's condition is unstable, pt and family advised to check her blood glucose in the morning fasting and before each meal and before qhs. Pt instructed to count carbs and do sliding scale based on carb count. Lantus given at bedtime. Asthma 738771702 J45.90 9 Pt's condition is stable, continue taking montelukas t daily, ProAir as needed for rescue inhaler. Return to clinic in Pharyngitis 413529773 J0 2.9 pt's condition has resolved after taking clarithrom ycin. Please follow up to clinic if symptoms reoccur. [id number] Charan Soliz MD Main Office [facility] [place] [address] 1 03/05/2019 11:22:11 03/08/2019 09:59:30 Uncontrolled type 1 diabetes mellitus 556723035 E10.65 Viral gastroenteritis 11 2564060 A08.4 [id number] Charan Soliz MD Main Office [address] [place] [address] [place] [address] 1 04/01/2019 15:16:46 04/01/2019 16:05:28 Sprain of foot 42967371 S93.601A Right foot - no fractures seen Type 1 selwyn betes mellitus 64996492 E10.69 [id number] Charan Soliz MD Main Office [facility] [place] [address] 1 04/16/2019 10:56:08 04/16/2019 11:31:34 Uncontrolled type 1 diabetes mellitus 339454059 E10.65 [id number] Charan Soliz MD Main Office [facility] [place] [address] 1 05/24/2019 14:08:40 05/24/2019 15:42:09 Pain in right foot 5066268723 97273 M79.671 Right foot - unremarkab le Problem behavior 0905635 01 F91.9 [id number] LEEROY Bryant Main Office [facility] [place] [address] 1 06/04/2019 14:41:15 06/04/2019 15:25:50 Uncontrolled type 1 diabetes mellitus 657478793 E10.65 pt's condition is worsening. pt here for sport's physical for track. pt states that blood sugar is up and down, advised her to follow sliding scale and eat snacks before and after track practice/m eets to avoid hypoglycem ic episodes. F/u in three months. Asthma 755065684 J45.90 9 pt's condition is stable, continue asthma tx protocol, f/u in three months. [id number] Charan Soliz MD Main Office [facility] [place] [id number] 1 10/14/2019 09:37:11 10/14/2019 10:56:16 Asthma 711773221 J45.909 Uncontroll ed type 1 diabetes mellitus 217533278 E10.65 Long-term current use of hormonal contraceptive 4684526363 89089 Z79.3 Otitis externa 6282903 H 60.92 [id number] Charan Soliz MD Main Office [facility] [place] [id number] 1 01/17/2020 09:14:34 01/18/2020 15:51:51 Asthma 360414057 J45.909 Uncontroll ed type 1 diabetes mellitus 257674991 E10.65 Long-term current use of hormonal contraceptive 3225870979 71870 Z79.3 [id number] Charan Soliz MD Main Office [facility] [place] 05019-107 1 02/22/2020 11:16:17 02/22/2020 17:34:48 Uncontrolled type 1 diabetes mellitus 344768470 E10.65 condition is improving with better glucose monitoring , continue treatment regimen and f/u in three months Asthma 637415380 J45.90 9 pt's condition is stable, continue current treatment regimen, f/u in three months. [id number] Charan Soliz MD Main Office [facility] [place] [id number] 1 05/23/2020 09:42:43 05/23/2020 10:35:41 Asthma 867984438 J45.909 Uncontroll ed type 1 diabetes mellitus 421759923 E10.65 [id number] Charan Soliz MD Main Office [facility] [place] 11[address]701 1 08/03/2020 15:27:19 08/04/2020 09:44:29 Uncontrolled type 1 diabetes mellitus 583179083 E10.65 Folliculitis 96015561 L7 3.9 Family terrence nning surveillance 224737808 Z30.09 [id number] Charan Soliz MD Main Office [facility] [place] [id number] 1 09/04/2020 10:34:08 09/05/2020 11:36:15 Asthma 160580545 J45.909 Uncontroll ed type 1 diabetes mellitus 956879933 E10.65 Mood disorder 19974416 F 39 Atopic dermatitis 268299 01 L20.9 [id number] LEEROY Bryant Main Office [facility] [place] [address] 09/27/2020 16:10:00 09/28/2020 16:41:29 Well child visit 464057536 Z00.129 pt is doing well, meeting milestones . she is attending a camp for six months. advised her to monitor her blood sugars with increased physical exercise. Asthma 252924907 J45.90 9 pt's condition is stable, continue asthma tx protocol, f/u in three months. [id number] Charan Soliz MD Main Office [facility] [place] [address] 1 10/02/2020 16:06:10 10/02/2020 16:39:27 Otitis media 71306876 H66.93 Folliculitis 36679777 L7 3.9 Anxiety 11534168 F41.9 [id number] Charan Soliz MD Main Office [address] [place] [address]76[address] 1 10/10/2020 11:26:13 10/10/2020 12:09:30 Folliculitis 87045288 L73.9 Candidiasis of vagina 72 886816 B37.3 Contusion of lower back 051471852 S30.0XXA Atopic dermatitis 648398 01 L20.9 Type 1 selwyn betes mellitus 29564729 E10.69 [id number] Charan Soliz MD Main Office [address] [place] [address] 1 12/11/2020 10:14:43 12/11/2020 10:53:59 Asthma 602073310 J45.909 Uncontroll ed type 1 diabetes mellitus 976962153 E10.65 Ingrowing nail of toe of left foot 0399548682 7273016 L60.0 Depressive disorder 3548 9007 F32.9 [id number] Charan Soliz MD Main Office [address] [place] [address] 736[address] 1 08/26/2022 09:59:36 08/26/2022 10:59:53 Cervical lymphadenopathy 511713328 R59.0 abx and will cont to follow Type 1 selwyn betes mellitus 65180291 E10.69 pt to cont checking BG 4-5 times a day. Pt states she is going to travel this week. Pt to adjust insulin based on meals [id number] Charan Soliz MD Main Office [address] [place] [address] 1 10/03/2022 14:56:56 10/03/2022 16:23:09 Asthma 168565544 J45.909 cont to follow Uncontroll ed type 1 diabetes mellitus 795000629 E10.65 reduce lantus by 5 units. start counting carbs and go 1 unit per 20g carbs [id number] Charan Soliz MD Main Office [address] [place] [address]568 1 11/04/2022 09:55:23 11/04/2022 11:08:25 Uncontrolled type 1 diabetes mellitus 597297315 E10.65 refill lantus and check labs. pt is actually fasting today. Staff and I have concerns about pt's home situation and her surroundin gs. Will cont to monitor Anxiety 79084529 F41.9 cont meds and monitor symptoms [id number] Charan Soliz MD Main Office [address] [place] [address]887 1 11/18/2022 16:17:19 11/19/2022 14:16:43 Sprain of left wrist 5140497033 4385769 S63.502A pt seems to be malingerin g based on pain not c/w exam. Uncontroll ed type 1 diabetes mellitus 590650259 E10.65 refill novolog and check labs. pt is actually fasting today. Staff and I have concerns about pt's home situation and her surroundin gs. Will cont to monitor [id number] Charan Soliz MD Main Office [address] [place] [address]67-738 1 01/01/2023 16:01:16 01/01/2023 17:18:15 Uncontrolled type 1 diabetes mellitus 889593621 E10.65 refill novolog and check labs. pt is actually fasting today. Staff and I have concerns about pt's home situation and her surroundin gs. Will cont to monitorPt to get dm under control before Herpes labialis 4487276 B00.1 [id number] LEEROY Bryant Main Office [address] [place] [address]851-056 1 01/07/2023 14:05:58 01/07/2023 14:36:51 Nausea 809540214 R11.0 use as directed for nausea, monitor blood pressure and continue to follow. Allergic rhinitis 138792 04 J30.9 use as directed for allergies [id number] Charan Soliz MD Main Office [address] [place] [address] 78989-907 1 02/06/2023 15:54:34 02/06/2023 16:53:04 Uncontrolled type 1 diabetes mellitus 760916113 E10.65 Pt with eratic schedule and eating routine. Pt will try to be more c/w eating and calories. will set up with supplies. reviewed monitor Health Concerns Section Related Observation LastModified by Organization Detai ls LastModified Time None Recorded Concern Status LastModified by Organization Details LastModified Time None Recorded Advance Directives Directive None Recorded Payers Insurance Date Sequence Insurance Name Policy Number Policy Green Covered Member ID Green Member ID Guarantor Name 03/03/2023 1 [place] [facility] Sam Hernandez [id number] Sam Hernandez Notes Date Note Type Note Provider Name and Address Organization Details Recorded Time 3 text/htm l Asthma F/UReported by PatientHPIFor severity, patient reportsable to sleep during episodeanddoes not interfere with daily activities. For context, patient reportsimproving. For associated symptoms, patient reportsno fever,no fatigue,no irritability,no cough,normal appetite,no changes in productivity, andno shortness of breath. Diabetes F/UReported by PatientHPIFor review finger sticks, patient reportsfastin's. For labs, patient reportslast a1c result: 7.7. For context, patient reportsnormal range of home blood sugars (in the low 100s),seeing eye doctor regularly, andchecking feet regularly(ranging 150s. occasional 300. pt and father educated on how to adjust insulin). For associated symptoms, patient reportsno weight loss,no dizziness,no sweats,no headaches,no confusion,no increased thirst,no increased appetite,no increased urination,no blurred vision,no numbness of feet, andno calluses on feet.ROS as noted in the HPI Pt here for a 1 month f/u with fasting lab work, she states that she is doing well at this time. She reports that she has been taking medications as directed. She says that her BG has been high, was in the 300's. Charan Soliz MD [facility] [place], [address], BEN Soliz 11/04/2022 11:00:32 3 text/htm l Emergency Department Follow-Up RecordReported by PatientEmergency Room Follow-Up RecordFor discharge information, patient reportsname of ed __ ([facility]),emergency department discharge date: (please enter in format 'mm/dd/yyyy') (11/07/22), anddate of follow-up phone call: (please enter in format 'mm/dd/yyyy') (11/18/22). Musculoskeletal PainReported by PatientHPIFor location, patient reportsleft hand.ROS as noted in the HPI Pt here for an ED f/u from 11/07, she has been to the ED 4x in the past two months for non-emergent issues. She says that she was having throat pain. She is also having pain in her L hand after a grill and a cinder block fell on it x2 days ago. She reports that she dropped out of school last year but is re-enrolling to [employer] to finish Charan Soliz MD [address] [place], [id number], [place] - Charan Soliz 11/18/2022 20:14:38 3 text/htm l ROS as noted in the HPI Pt here to discuss getting , she is concerned with her dx of T1D and her current medications. She says that she is getting in two weeks. Charan Soliz MD [address] [place], [address], [facility] - Charan Soliz 01/01/2023 18:03:21 3 text/htm l Sinusitis/AllergyReported by PatientHPIFor associated symptoms, patient reportsnasal discharge from both nostrils,nausea or vomiting,facial pain bilaterally, andsinus pain foreheadbut reportsno nasal discharge,no fever,no weight loss,no hemoptysis,no hematemesis,no difficulty breathing,no feeling of strangulation,no headache,no sore throat,no thick phlegm in throat,not constantly clearing the throat,no nasal passage blockage,no ear fullness,no nasal itching,no eye itching,no pain behind the eyes, andno skin itching. For onset/timing, patient reportsresolvedandabrupt onset. For quality, patient reportsno pain,no itching,no hoarseness,no throbbing,minimal discomfort, andimproving. For duration, patient reportsresolved. For severity, patient reportsno pain,does not limit daily activities,no frequent breathing through the mouth,no nosebleeds (epistaxis), andno snoring. For context, patient reportsno recent upper respiratory infection,no recent sick contacts,not worse with seasonal allergen exposure,not worse around animals,not worse around pollen,not worse around dust,not worse around molds,not worse with environmental exposure,not worse when mowing grass,not worse with certain foods, andnot worse with odors. For risk factors, patient reportsno current smoking or tobacco use,no history of smoking,no increased stress,no family history of allergies,no history of nasal trauma,no allergy to aspirin,no history of nasal polyps,no history of asthma,no chemotherapy,no dm,no hiv, andno immunodeficiency. For aggravating factors, patient reportsnot worse with change in medication,not worse during an upper respiratory infection (a cold), andnot worse when allergies are active.ROS as noted in the HPI pt here for flu like symptoms LEEROY Bryant [address] [place], [id number], BEN Soliz 01/07/2023 15:08:49 3 text/htm l Diabetes F/UReported by PatientHPIFor review finger sticks, patient reportsfastinandpre dinner: 45. For labs, patient reportslast a1c result: 7.7. For context, patient reportsnormal range of home blood sugars (in the low 100s),seeing eye doctor regularly, andchecking feet regularly(ranging 150s. occasional 300. pt and father educated on how to adjust insulin). For associated symptoms, patient reportsno weight loss,no dizziness,no sweats,no headaches,no confusion,no increased thirst,no increased appetite,no increased urination,no blurred vision,no numbness of feet, andno calluses on feet.ROS as noted in the HPI Pt here for issues with her BG bottoming out, she is currently seeing diabetic education. She says that she was having to drink Pepsi and eat some candy to get her BG back up. She is with her friend, Fer at time of triage. She also has a cat scratch on her L third finger that he is concerned about. Charan Soliz MD [address] [place], [address], [place] BEN Soliz 02/06/2023 17:05:47 OBGyn Episode No OBEpisode recorded.
[2025-02-09 23:02] VITALS: BP 119/73; PULSE 97; O2SAT 98
[2025-02-09 23:30] VITALS: BP 114/61; PULSE 92; O2SAT 96
--- NOTE | 2025-02-09 23:41 | ED_ITS ---
HPI - URI/Sore Throat 2 General: Chief Complaint: Upper Respiratory Infection Stated Complaint: SOB n/v Time Seen by Provider: 02/09/25 22:56 History of Present Illness: Patient is a 20-year-old female with a history of DM1 who presents with r doubling back of respiratory symptoms, initially had 5 days of a cough, congestion, malaise and low-grade fevers, she had been feeling well for 3 days in the middle and then earlier today started feeling bad again, does not recall any fevers, she has also had a generalized abdominal pain, 1 episode of vomiting and diarrhea. She denies recent suspicious food intake. Her sugars at home have been fluctuating in the 100s, had an admission for DKA 5 months ago. she is currently , approximately five weeks gestation with no OB appointment yet, she denies any intense lower abdominal cramping, no vaginal bleeding, no discharge. Associated symptoms: Reports abdominal pain, chills, nausea and vomiting Related Data Previous Rx's ?Medication ?Instructions ?Recorded glucagon HCl 1 mg solution for 1 mg SUBCUT Q20M PRN hy poglycemia 06/04/22 injection (Glucagon (HCl) #1 ea Emergency Kit) insulin aspart U-100 100 unit/mL See Rx Instructions . Route 06/04/22 (3 mL) subcutaneous pen .COMPLEX #15 mL insulin glargine 100 unit/mL (3 See Rx Instructions .R oute 09/12/22 mL) subcutaneous pen .COMPLEX #15 mL clindamycin HCl 300 mg capsule 300 mg PO TID 10 days # 30 caps 01/18/25 (Cleocin HCl) guaifenesin 1,200 mg tablet, 1,200 mg PO BID 1 week #1 4 tabs 01/18/25 extended release 12 hr (Mucinex) ondansetron 4 mg disintegrating 4 mg PO TID PRN nausea and 02/10/25 tablet vomiting #20 tabs Allergies Allergy/AdvReac Type Severity Reaction Status Date / Time azithromycin Allergy Severe eyes Verified 02/09/25 22:51 swollen shut cefdinir Allergy Intermediate ALGY-Rash Verified 02/09/25 22:51 Penicillins Allergy unk Verified 02/09/25 22:51 Review of Systems 2 General: Reports: 10 or more systems reviewed and unremarkable except in HPI and below Const: Reports: chills and fatigue Resp: Reports: productive cough GI: Reports: abdominal pain, nausea and vomiting PFSH ED 2 PFSH: Medical History (Updated 02/10/25 @ 00:40 by Vadim Samayoa DO) Asthma Type 1 diabetes mellitus Family History Mother Hypothyroidism Epilepsy Father Epilepsy Social History Smoking and tobacco/nicotine status: current every day tobacco/nicotine user (vape) e-cigarettes E-Cigarette Details: vaporizer device E-cig/vape details: 1 mg nicotine Second hand smoke exposure: Yes Alcohol intake: never Substance/Drug Use: never Marital status: Single Marital status details: engaged Current occupational status: employed Current gender identity: Female Special ryan needs: No Physical Exam 2 Narrative: EXAM NARRATIVE: Well-appearing, afebrile, vital stable on arrival, no acute distress but mildly fatigued appearing. Abdomen soft, nondistended, nontender throughout, no overlying skin changes, no CVA tenderness, bowel sounds intact. Breathing comfortably on room air, no adventitious lung sounds, mild nasal congestion. Normal sinus rhythm with no murmurs, mildly delayed cap refill, 2+ pulses throughout. GCS 15. Course 2 Vital Signs: Vital signs: Vital Signs Temperature 98.2 F 02/09/25 22:47 Pulse Rate 97 02/09/25 23:02 Respiratory Rate 16 02/09/25 22:47 Blood Pressure 119/73 02/09/25 23:02 Pulse Oximetry 98 02/09/25 23:02 Oxygen Delivery Me thod Room Air 02/09/25 23:02 MDM - URI/Sore Throat Medical Decision Making -ddx: URI, pneumonia, neuritis, hyperglycemia, DKA, dehydration, electrolyte abnormality, early - Patient overall well-appearing, with history of type 1 diabetes with previous DKA admission, coming in seemingly with 1 day of doubling back of respiratory symptoms, now with mild GI component, reassuring abdominal exam, reported as a early , will initiate diabetic, abdominal and infectious workup, treat with Zofran and fluids and reassess. - Patient's serum hCG less than 1, further discussed this with patient she states she had 2 at home test, 1 today from the health department, stated that with a negative blood serum level being more accurate this was probably more likely the case. Stated that her tests were most likely false positives and not indicative of an actual spontaneous but cannot say for sure. - Otherwise patient's labs overall reassuring, no leukocytosis, glucose 150 but importantly normal bicarb, no increased anion gap, no concerns for DKA or HHS. No severe electrolyte abnormality, no FANTASMA, baseline mildly elevated LFTs. On reevaluation, patient's abdominal tenderness completely resolved, she felt well, she was able to tolerate p.o., no changes in her respiratory status, breathing comfortably on room air and saturating well and she was comfortable going home after we discussed getting a chest x-ray and CT now knowing that she is not but with feeling well and an otherwise reassuring workup she was thought to have a recurrent viral upper respiratory infection with superimposed GI viral infection but low suspicion for anything bacterial so I will not start antibiotics at this time, CRP only mildly elevated and so she was able to be discharged with Zofran as needed for nausea and instructed to return slowly to a normal diet, understanding of plan of care, strict return precautions given. Lab Data 02/09/25 23:00 02/09/25 23:00 Laboratory Results WBC 7.43 10^3/uL (3.29-11.43) 02/09/25 23:00 RBC 4.33 10^6/uL (3.85-5.65) 02/09/25 23:00 Hgb 13.30 g/dL (11.27-16.99) 02/09/25 23:00 Hct 39.6 % (36-47) 02/09/25 23:00 MCV 91.5 fl (85-98) 02/09/25 23:00 MCH 30.7 pg (27-33) 02/09/25 23:00 MCHC 33.6 g/dL (30-55) 02/09/25 23:00 RDW 12.1 % (12.1-15.1) 02/09/25 23:00 Plt Count 385 10^3/cmm (157-399) 02/09/25 23:00 MPV 10.4 fL (7.4-10.4) 02/09/25 23:00 Neut % (Auto) 42.8 % 02/09/25 23:00 Lymph % (Auto) 42.4 % 02/09/25 23:00 Carlton % (Auto) 10.0 % 02/09/25 23:00 Eos % (Auto) 2.8 % 02/09/25 23:00 Baso % (Auto) 1.3 % 02/09/25 23:00 Neut # (Auto) 3.18 10^3/uL (1.8-7.7) 02/09/25 23:00 Lymph # (Auto) 3.2 10^3/uL (0.8-4.8) 02/09/25 23:00 Carlton # (Auto) 0.7 10^3/uL (0.2-0.9) 02/09/25 23:00 Eos # (Auto) 0.2 10^3/uL (0.0-0.8) 02/09/25 23:00 Baso # (Auto) 0.1 10^3/uL (0.0-0.1) 02/09/25 23:00 Nucleated RBC % (auto) 0 % 02/09/25 23:00 Nucleated RBCs # 0.0 /100WBC 02/09/25 23:00 Sodium 138 mmol/L (136-145) 02/09/25 23:00 Potassium 3.7 mmol/L (3.5-5.1) 02/09/25 23:00 Chloride 101 mmol/L (98-107) 02/09/25 23:00 Carbon Dioxide 24 mmol/L (22-29) 02/09/25 23:00 Anion Gap 16.7 (5-19) 02/09/25 23:00 BUN 9 mg/dL (6-20) 02/09/25 23:00 Creatinine 0.5 mg/dL (0.5-0.9) 02/09/25 23:00 GFR Calculation 155.7 mL/min (90-130) H 02/09/25 23:00 Glucose 150 mg/dL (65-115) H 02/09/25 23:00 Calculated Osmolality 288 mOsm/kg (285-295) 02/09/25 23:00 Calcium 9.6 mg/dL (8.5-10.5) 02/09/25 23:00 Phosphorus 4.3 mg/dL (2.5-4.5) 02/09/25 23:00 Magnesium 2.0 mg/dL (1.7-2.3) 02/09/25 23:00 Total Bilirubin 0.2 mg/dL (0.15-1.2) 02/09/25 23:00 AST 19 U/L (0-32) 02/09/25 23:00 ALT 15 U/L (0-33) 02/09/25 23:00 Alkaline Phosphatase 115 U/L (35-105) H 02/09/25 23:00 C-Reactive Protein 10.7 mg/L (0.0-4.9) H 02/09/25 23:00 Total Protein 7.1 g/dL (6.6-8.7) 02/09/25 23:00 Albumin 4.3 g/dL (3.5-5.2) 02/09/25 23:00 Globulin 2.8 g/dL (1.3-4.6) 02/09/25 23:00 Lipase 16 U/L (13-60) 02/09/25 23:00 Ser , Semi-Qnt < 1.00 mIU/mL 02/09/25 23:00 Influenza A (PCR) Negative (Negative) 02/09/25 22:38 Influenza Type B (PCR) Negative (Negative) 02/09/25 22:38 RSV (PCR) Negative (Negative) 02/09/25 22:38 SARS-CoV-2 (PCR) Negative (Negative) 02/09/25 22:38 No radiology studies performed this visit Discharge Plan Discharge Patient Disposition: Home Clinical Impression: Type 1 diabetes mellitus, Viral infection, Enteritis Condition: Stable Prescriptions: New ondansetron 4 mg tablet,disintegrating 4 mg PO TID PRN (Reason: nausea and vomiting) Qty: 20 0RF No Action clindamycin HCl [Cleocin HCl] 300 mg capsule 300 mg PO TID 10 Days Qty: 30 0RF guaifenesin [Mucinex] 1,200 mg tablet extended release 12hr 1,200 mg PO BID 7 Days Qty: 14 0RF insulin aspart U-100 100 unit/mL (3 mL) insulin pen See Rx Instructions .ROUTE .COMPLEX Qty: 15 1RF Dose Instruction: ADMINISTER 5 UNITS UNDER THE SKIN THREE TIMES DAILY OR PER SLIDING SCALE DIRECTED Rx Instructions: ADMINISTER 5 UNITS UNDER THE SKIN THREE TIMES DAILY OR PER SLIDING SCALE DIRECTED glucagon HCl [Glucagon (HCl) Emergency Kit] 1 mg recon soln 1 mg SUBCUT Q20M PRN (Reason: hypoglycemia) Qty: 1 0RF Rx Instructions: until target blood sugar attained insulin glargine 100 unit/mL (3 mL) insulin pen See Rx Instructions .ROUTE .COMPLEX Qty: 15 0RF Dose Instruction: INJECT 30 UNITS SUBCUTANEOUSLY ONCE DAILY Rx Instructions: INJECT 30 UNITS SUBCUTANEOUSLY ONCE DAILY Discharge Orders: Discharge ED (Routine); Ordered 02/10/25 Ordered By: Vadim Samayoa Discharge Diet: Advance as tolerated Discharge Activity: Resume usual activity Patient Instructions: Opioid Safety, Pain Management, Patient Portal & [facility] Instructions Activity Restrictions/Additional Instructions: You were seen for your abdominal pain, decreased energy, vomiting, you were evaluated with laboratory studies which were ultimately reassuring. You most likely have a combination of a recurrent viral upper respiratory infection mixed with a stomach bug, you improved with fluids and nausea medication and were deemed stable to be discharged home. For continued adequate hydration, use the Zofran 4 mg every 8 hours as needed for nausea. Alternate Tylenol 650 mg and ibuprofen 400 mg every 4 hours as needed for pain. Ensure you get enough rest, follow-up with your primary care physician in a couple days to reevaluate the status of your sugars and overall infection. Return to the ED with severe worsening of your abdominal pain, continuous vomiting, inability to eat or drink, breathing difficulties, fevers that do not improve with Tylenol, any other emergent concerns. Print Language: Maori Coding Level of Care Code ED [place] [employer] Super[employer] for Ree Allen
[2025-02-09 23:58] LABS: Hematocrit 39.6 % (36-47); Hemoglobin 13.30 g/dL (11.27-16.99); Mean Corpuscular HGB Conc 33.6 g/dL (30-55); Mean Corpuscular Hemoglobin 30.7 pg (27-33); Mean Corpuscular Volume 91.5 fl (85-98); Nucleated Red Blood Cells % 0 %; Platelet Count 385 10^3/cmm (157-399); Red Blood Count 4.33 10^6/uL (3.85-5.65); White Blood Count 7.43 10^3/uL (3.29-11.43)
[2025-02-09] MEDS: ondansetron 2 mg/ML SDV 2 mL 4 MG IVP (23:58)
[2025-02-10 00:10] LABS: Alanine Aminotransferase 15 U/L (0-33); Albumin Level 4.3 g/dL (3.5-5.2); Alkaline Phosphatase 115 U/L (35-105); Anion Gap 16.7 (5-19); Aspartate Amino Transferase 19 U/L (0-32); Blood Urea Nitrogen 9 mg/dL (6-20); Calcium 9.6 mg/dL (8.5-10.5); Carbon Dioxide 24 mmol/L (22-29); Chloride 101 mmol/L (98-107); Globulin 2.8 g/dL (1.3-4.6); Glucose 150 mg/dL (65-115); Lipase 16 U/L (13-60); Magnesium 2.0 mg/dL (1.7-2.3); Osmolality Calculated 288 mOsm/kg (285-295); Potassium 3.7 mmol/L (3.5-5.1); Sodium 138 mmol/L (136-145); Total Protein 7.1 g/dL (6.6-8.7)
[2025-02-10 00:30] VITALS: BP 104/66; PULSE 99; O2SAT 96
[2025-02-10 00:35] LABS: Respiratory Syncytial Virus Ce NEGATIVE (Negative); SARS-CoV-2 PCR NEGATIVE (Negative)
== END 2025-02-10 00:55 | disposition home or self-care (01) ==
PROVIDERS: Emergency Provider Student in an Organized Health Care Education/Training Program
DX: E10.9 Type 1 diabetes mellitus without complications (principal); B34.9 Viral infection, unspecified; K52.9 Noninfective gastroenteritis and colitis, unspecified; Z79.4 Long term (current) use of insulin; Z11.52 Encounter for screening for COVID-19; F17.290 Nicotine dependence, other tobacco product, uncomplicated
CPT/HCPCS: 36416; 80053; 82962; 83690; 83735; 84100; 84702; 85025; 86140; 87637; 96361; 96374; 99284; J2405; J7030